=== PATIENT | male | born 1970 | race African-American/Black ===

== ENCOUNTER 2018-05-19 21:09 | Emergency (ER) | payer SELFPAY ==
[~2018-05-19] VITALS: Ht 182.9 cm; Wt 93.0 kg
[2018-05-19 21:30] VITALS: BP 97/61
== END 2018-05-19 22:34 | disposition left against medical advice (07) ==
LOC: ER 21:09
DX: Z53.21 Procedure and treatment not carried out due to patient leaving prior to being seen by health care provider (principal)